=== PATIENT | male | born 1945 | race Two or more races ===

== ENCOUNTER → 2021-11-11 | Outpatient (CLI) | payer OTHER ==
[~2021-11-11] VITALS: Ht 177.8 cm; Wt 64.9 kg
[~2021-11-11] MED LIST: ADENOSINE 54 MG in GIVE UN-DILUTED 0 ML IV STA; REGADENOSON 0.4 MG/5 ML SYRG IV ONE
[2021-11-11 09:25] VITALS: BP 176/69
== END | disposition home or self-care (01) ==
LOC: XYW 07:14
PROVIDERS: ATTEND Internal Medicine
DX: Z01.818 Encounter for other preprocedural examination (principal); S73.001A Unspecified subluxation of right hip, initial encounter; E78.5 Hyperlipidemia, unspecified; E11.22 Type 2 diabetes mellitus with diabetic chronic kidney disease; N18.4 Chronic kidney disease, stage 4 (severe); M25.559 Pain in unspecified hip; X58.XXXA Exposure to other specified factors, initial encounter; Y93.89 Activity, other specified; Y92.89 Other specified places as the place of occurrence of the external cause; Y99.8 Other external cause status
CPT/HCPCS: 78452; 93017; A9500; J2785; J0153

== ENCOUNTER 2023-06-03 17:16 | Inpatient (IN) | payer OTHER ==
[~2023-06-03] VITALS: Ht 177.8 cm; Wt 76.5 kg
[2023-06-03 21:13] VITALS: PULSE 90; RESP 18; O2SAT 99
[2023-06-03] MEDS ORDERED: ONDANSETRON HCL 4 MG/2 ML VIAL IV PRN (22:00)
[2023-06-03] MEDS ORDERED: ACETAMINOPHEN 325 MG TAB PO PRN (22:00)
[2023-06-03] MEDS: InsuLIN REG 1unit/0.01ml Soln (100units/ml) SC SCH (22:00)
[2023-06-03] MEDS ORDERED: DEXTROSE (50%) 50ML SYRG IV PRN (22:00)
[2023-06-03] MEDS ORDERED: hydrALAZINE HCL 10 MG TAB PO PRN (22:00)
[2023-06-03 22:34] LABS: Basophils # (auto) 0.1 10 ^3/uL (0-0.2); Basophils % (auto) 1.6 % (0.0-2.0); Eosinophils # (auto) 0 10 ^3/uL (0-0.8); Hematocrit 36.9 % (41.0-53.0); Hemoglobin 12.2 g/dL (13.5-17.5); Lymphocytes # (auto) 0.1 10 ^3/uL (0.4-5.4); Lymphocytes % (auto) 1.6 % (10.0-50.0); Mean Corpuscular Hemoglobin 34.9 pg (28.0-32.0); Mean Corpuscular Volume 105.8 fL (80.0-100.0); Monocytes # (auto) 0.5 10 ^3/uL (0-1.3); Monocytes % (auto) 5.3 % (0.0-12.0); Neutrophils % (auto) 91.5 % (37.0-80.0); Nucleated Red Blood Cells % 0.2 %; Red Blood Cells 3.49 10^6/uL (4.5-5.90); Red Cell Distribution Width 15.9 % (11.8-14.3); White Blood Cell 8.7 10^3/uL (4.4-10.8)
[2023-06-03] MEDS: HEPARIN SODIUM (PORCINE) 5000 UNITS/ML 1ML VIAL SC SCH (22:51)
[2023-06-03 22:52] LABS: INR 1.49 (0.9-1.15); Prothrombin Time 15.2 sec (9.3-11.8)
[2023-06-03] MEDS: HYDROcodone-ACET 5/325MG TAB PO PRN (23:04)
[2023-06-03] MEDS: ACCU-CHEK COMFORT CURVE STRIP VI SCH (23:08)
[2023-06-04] VITALS (7 sets, daily range): BP systolic 138–165; BP diastolic 57–87; PULSE 78–90; RESP 18–20; TEMP 97.1–98.1; O2SAT 92–100
[2023-06-04] MEDS ORDERED: ALPR0.5T8 GT (03:36)
[2023-06-04] MEDS ORDERED: LOVA20TA4 PO (03:45)
[2023-06-04] MEDS ORDERED: SEVE800T10 PO (03:45)
[2023-06-04] MEDS ORDERED: METO25TA5 PO (03:45)
[2023-06-04] MEDS: ACCU-CHEK COMFORT CURVE STRIP VI SCH ×4 (06:33→22:00)
[2023-06-04] MEDS: InsuLIN REG 1unit/0.01ml Soln (100units/ml) SC SCH ×4 (06:38→22:00)
[2023-06-04 07:35] LABS: Calcium 8.6 mg/dL (8.5-10.1); Chloride 95 mmol/L (98-107); Potassium 5.4 mmol/L (3.5-5.1); Sodium 133 mmol/L (136-145)
[2023-06-04 07:36] LABS: Anion Gap 12 (5-15); Carbon Dioxide 26 mmol/L (20-30)
[2023-06-04 07:41] LABS: BUN/Creatinine Ratio 9.8 (10.0-20.0); Glucose 128 mg/dL (74-106)
[2023-06-04 07:45] LABS: Blood Urea Nitrogen 82 mg/dL (9-23)
[2023-06-04] MEDS: HYDROcodone-ACET 5/325MG TAB PO PRN ×3 (08:59→22:25)
[2023-06-04] MEDS: HEPARIN SODIUM (PORCINE) 5000 UNITS/ML 1ML VIAL SC SCH ×2 (09:10→22:28)
[2023-06-04] MEDS ORDERED: SODIUM ZIRCONIUM CYCL 10 GM PAK PO ONE (17:00)
[2023-06-04] MEDS: BUMETANIDE 2.5mg/10ml (0.25 mg/ml) INJ IV SCH (18:19)
[2023-06-05] VITALS (7 sets, daily range): BP systolic 130–158; BP diastolic 51–67; PULSE 80–109; RESP 17–21; TEMP 97.7–98.8; O2SAT 90–99
[2023-06-05] MEDS: HYDROcodone-ACET 5/325MG TAB PO PRN ×2 (04:03→17:51)
[2023-06-05 05:40] LABS: Calcium 8.8 mg/dL (8.5-10.1); Chloride 95 mmol/L (98-107); Sodium 134 mmol/L (136-145)
[2023-06-05 05:41] LABS: Anion Gap 14 (5-15); Carbon Dioxide 25 mmol/L (20-30)
[2023-06-05 05:46] LABS: BUN/Creatinine Ratio 10.4 (10.0-20.0); Glucose 80 mg/dL (74-106)
[2023-06-05] MEDS: BUMETANIDE 2.5mg/10ml (0.25 mg/ml) INJ IV SCH ×2 (06:00→17:50)
[2023-06-05 06:29] LABS: Blood Urea Nitrogen 92 mg/dL (9-23); Potassium 5.6 mmol/L (3.5-5.1)
[2023-06-05] MEDS: InsuLIN REG 1unit/0.01ml Soln (100units/ml) SC SCH ×4 (06:51→22:18)
[2023-06-05] MEDS: ACCU-CHEK COMFORT CURVE STRIP VI SCH ×4 (06:51→22:18)
[2023-06-05] MEDS ORDERED: SODIUM CHL 0.9% 1000 ML BAG XX ONE (07:00)
[2023-06-05] MEDS: HEPARIN SODIUM (PORCINE) 5000 UNITS/ML 1ML VIAL SC SCH ×2 (10:00→22:18)
[2023-06-05 10:36] LABS: Hepatitis B Surface Antibody Negative (Negative)
[2023-06-05 10:48] LABS: Hepatitis B Surface Antigen Negative (Negative)
[2023-06-05 11:20] LABS: COVID19 ANTIGEN SOFIA FIA NEGATIVE (NEGATIVE)
[2023-06-06] MEDS: HYDROcodone-ACET 5/325MG TAB PO PRN ×2 (00:44→09:51)
[2023-06-06 04:50] VITALS: BP 140/55; PULSE 85; RESP 17; TEMP 98.5; O2SAT 94
[2023-06-06] MEDS: ACCU-CHEK COMFORT CURVE STRIP VI SCH ×2 (06:56→10:40)
[2023-06-06] MEDS: BUMETANIDE 2.5mg/10ml (0.25 mg/ml) INJ IV SCH (06:56)
[2023-06-06] MEDS: InsuLIN REG 1unit/0.01ml Soln (100units/ml) SC SCH ×2 (06:57→10:40)
[2023-06-06 08:00] VITALS: PULSE 82; PULSE 83; RESP 18; O2SAT 98
[2023-06-06 08:34] VITALS: BP 121/54; PULSE 83; RESP 18; TEMP 98.3; O2SAT 98
[2023-06-06] MEDS: HEPARIN SODIUM (PORCINE) 5000 UNITS/ML 1ML VIAL SC SCH (08:45)
[2023-06-06 12:31] VITALS: BP 135/67; PULSE 90; RESP 19; TEMP 98.1; O2SAT 99
[2023-06-06 16:54] VITALS: BP 149/65; PULSE 91; RESP 17; TEMP 98.3; O2SAT 98
== END 2023-06-06 17:58 | DRG 640 ==
LOC: TELE-WESTW 19:46 → UNDOADMIN 19:46 → TELE-WESTW 22:02
PROVIDERS: ADMIT Nurse Practitioner Family; ATTEND Nurse Practitioner Family
PROC: 5A1D70Z Performance of Urinary Filtration, Intermittent, Less than 6 Hours Per Day (ICD-10-PCS; principal; 2023-06-05)
DX: E87.5 Hyperkalemia (principal); N18.6 End stage renal disease; I12.0 Hypertensive chronic kidney disease with stage 5 chronic kidney disease or end stage renal disease; E87.70 Fluid overload, unspecified; E11.22 Type 2 diabetes mellitus with diabetic chronic kidney disease; E78.5 Hyperlipidemia, unspecified; Z20.822 Contact with and (suspected) exposure to COVID-19; Z99.2 Dependence on renal dialysis; Z91.158 Patient's noncompliance with renal dialysis for other reason; Z86.73 Personal history of transient ischemic attack (TIA), and cerebral infarction without residual deficits; Z88.1 Allergy status to other antibiotic agents
CPT/HCPCS: 36415; 73502; 80048; 82306; 82962; 83036; 83880; 83970; 84100; 85025; 85610; 86706; 87081; 87340; 87426; 90935; 97110; 97116; 97163; 97530; G0378; J1815

== ENCOUNTER 2023-07-02 13:54 | Inpatient (IN) | payer OTHER ==
[~2023-07-02] VITALS: Ht 172.7 cm; Wt 76.8 kg
[~2023-07-02 13:54] MED LIST changes: -ADENOSINE 54 MG in GIVE UN-DILUTED 0 ML IV STA; +ALPR0.5T8 GT; +LOVA20TA4 PO; +METO25TA5 PO; -REGADENOSON 0.4 MG/5 ML SYRG IV ONE; +SEVE800T10 PO
[2023-07-02] MEDS ORDERED: ONDANSETRON ODT 4 MG TAB PO ONE (15:30)
[2023-07-02] MEDS ORDERED: MORPHINE SULFATE INJ 2 MG/ml SYRG IM ONE (15:30)
[2023-07-02] MEDS ORDERED: LORazepam 2MG/ML-1ML VIAL IV ONE (15:45)
[2023-07-02 16:14] LABS: Basophils # (auto) 0.1 10 ^3/uL (0-0.2); Eosinophils # (auto) 0.3 10 ^3/uL (0-0.8); Hemoglobin 8.4 g/dL (13.5-17.5); Lymphocytes # (auto) 0.3 10 ^3/uL (0.4-5.4); Nucleated Red Blood Cells % 0.2 %
[2023-07-02 16:16] LABS: Eosinophils % (auto) 2.5 % (0.0-7.0); Hematocrit 25.6 % (41.0-53.0); Lymphocytes % (auto) 2.7 % (10.0-50.0); Mean Corpuscular Hemoglobin 35.9 pg (28.0-32.0); Mean Corpuscular Hgb Conc. 32.7 g/dL (32.0-36.0); Monocytes # (auto) 0.5 10 ^3/uL (0-1.3); Neutrophils # (auto) 9.7 10 ^3/uL (1.6-8.6); Neutrophils % (auto) 88.8 % (37.0-80.0); Red Blood Cells 2.33 10^6/uL (4.5-5.90); Red Cell Distribution Width 17.6 % (11.8-14.3); White Blood Cell 10.9 10^3/uL (4.4-10.8)
[2023-07-02 16:31] LABS: Alanine Aminotransferase 14 U/L (7-40); Albumin 3.2 g/dL (3.2-4.8); Alkaline Phosphatase 136 U/L (46-116); Anion Gap 8 (5-15); Aspartate Aminotransferase 17 U/L (13-40); BUN/Creatinine Ratio 9.7 (10.0-20.0); Blood Alcohol < 3.0 mg/dL (<10); Blood Urea Nitrogen 48 mg/dL (9-23); Calcium 8.2 mg/dL (8.7-10.4); Carbon Dioxide 30 mmol/L (20-30); Chloride 101 mmol/L (98-107); Glucose 146 mg/dL (74-106); Magnesium 2.1 mg/dL (1.6-2.6); Sodium 139 mmol/L (136-145)
[2023-07-02 16:32] LABS: Bilirubin, Total 0.7 mg/dL (0.2-1.0); Total Protein 5.7 g/dL (5.7-8.2)
[2023-07-02 16:33] LABS: INR 1.55 (0.9-1.15); Partial Thromboplastin Time 31.7 SEC (24.5-34.5); Prothrombin Time 15.8 sec (9.3-11.8)
[2023-07-02 16:34] LABS: Potassium 5.8 mmol/L (3.5-5.1)
[2023-07-02 17:14] LABS: Anisocytosis Slight; Macrocytosis Moderate; Polychromasia Slight
[2023-07-02 17:15] LABS: Large Platelets FEW; Ovalocytes FEW; Platelet Estimate Adequa
[2023-07-02 19:25] VITALS: O2SAT 98
[2023-07-02] MEDS ORDERED: ALBUTEROL SULF 2.5 MG/0.5ML(0.5%) NEB SOLN NEB ONE (20:30)
[2023-07-02] MEDS ORDERED: DEXTROSE (50%) 50ML SYRG IV ONE (20:30)
[2023-07-02] MEDS ORDERED: SODIUM ZIRCONIUM CYCL 10 GM PAK PO ONE (20:30)
[2023-07-02] MEDS ORDERED: InsuLIN REG 1unit/0.01ml Soln (100units/ml) IV ONE (20:30)
[2023-07-02] MEDS ORDERED: SODIUM BICARBONATE 8.4% INJ 50ML SYRINGE IV ONE (20:45)
[2023-07-02 23:03] LABS: Glucose 146 mg/dL (74-106)
[2023-07-02 23:04] LABS: BUN/Creatinine Ratio 9.7 (10.0-20.0); Blood Urea Nitrogen 50 mg/dL (9-23)
[2023-07-02 23:13] LABS: Anion Gap 9 (5-15); Calcium 8.2 mg/dL (8.7-10.4); Carbon Dioxide 30 mmol/L (20-30); Chloride 101 mmol/L (98-107); Potassium 5.4 mmol/L (3.5-5.1); Sodium 140 mmol/L (136-145)
[2023-07-02 23:52] LABS: Amphetamine Screen, Urine Neg (NEGATIVE); Benzodiazephine Screen, Urine Pos (NEGATIVE)
[2023-07-02 23:53] LABS: Barbiturate Scree,Urine Neg (NEGATIVE); Cannabinoid Screen, Urine Neg (NEGATIVE); Cocaine Screen, Urine Neg (NEGATIVE); Opiate Scree,Urine Neg (NEGATIVE); Phencyclidine Screen, Urine Neg (NEGATIVE)
[2023-07-03 00:05] LABS: Urine Bacteria FEW /hpf (None Seen); Urine Blood 3+ /uL (Negative); Urine Clarity HAZY (Clear); Urine Color Yellow (Yellow); Urine Protein, UAD 2+ (Negative); Urine Specific Gravity 1.018 (1.001-1.035); Urine Urobilinogen Normal (Negative); Urine WBC 9 /hpf (0 - 3)
[2023-07-03] MEDS ORDERED: FUROSEMIDE 40 MG/4 ML VIAL IV ONE (00:15)
[2023-07-03] MEDS ORDERED: DEXTROSE (50%) 50ML SYRG IV ONE ×3 (00:15→08:45)
[2023-07-03] MEDS ORDERED: InsuLIN REG 1unit/0.01ml Soln (100units/ml) IV ONE ×3 (00:15→08:45)
[2023-07-03] MEDS ORDERED: ALBUTEROL SULF 2.5 MG/0.5ML(0.5%) NEB SOLN NEB ONE ×4 (00:15→08:45)
[2023-07-03] MEDS ORDERED: SODIUM BICARBONATE 8.4% INJ 50ML SYRINGE IV ONE ×3 (00:15→08:45)
[2023-07-03] MEDS ORDERED: ALBUTEROL MEDNEB 2.5 mg/3ml NEB ONE ×2 (00:37→05:43)
[2023-07-03] MEDS ORDERED: ONDANSETRON HCL 4 MG/2 ML VIAL IV PRN (01:30)
[2023-07-03] MEDS ORDERED: ENOXAPARIN SOD 80 MG/0.8ML SYRINGE SC SCH (01:30)
[2023-07-03] MEDS ORDERED: MORPHINE SULFATE INJ 2 MG/ml SYRG IV PRN (01:30)
[2023-07-03] MEDS ORDERED: hydrALAZINE HCL 10 MG TAB PO PRN (01:30)
[2023-07-03] MEDS ORDERED: NITROGLYCERIN 0.4 MG SL TAB SL PRN (01:30)
[2023-07-03] MEDS ORDERED: DEXTROSE (50%) 50ML SYRG IV PRN (01:30)
[2023-07-03] MEDS: cefTRIAXone 1GM/50ML D5W 50 ML IV SCH ×2 (02:13→10:00)
[2023-07-03] MEDS ORDERED: HEPARIN SODIUM (PORCINE) 5000 UNITS/ML 1ML VIAL IV SCH (02:30)
[2023-07-03] MEDS ORDERED: SODIUM ZIRCONIUM CYCL 10 GM PAK PO ONE ×2 (05:15→08:45)
[2023-07-03] MEDS ORDERED: CALCIUM GLUC 1,000mg/50ml-NS 50 ML IV ONE ×2 (05:15→08:45)
[2023-07-03] MEDS: METOPROLOL TARTRATE 25 MG TAB PO SCH ×2 (05:49→10:00)
[2023-07-03] MEDS: InsuLIN REG 1unit/0.01ml Soln (100units/ml) SC SCH ×4 (06:29→22:31)
[2023-07-03] MEDS: ACCU-CHEK COMFORT CURVE STRIP VI SCH ×4 (06:29→22:29)
[2023-07-03 06:42] LABS: Chloride 106 mmol/L (98-107); Sodium 142 mmol/L (136-145)
[2023-07-03 06:43] LABS: Anion Gap 16 (5-15); Calcium 8.3 mg/dL (8.5-10.1); Carbon Dioxide 20 mmol/L (20-30)
[2023-07-03 06:48] LABS: Glucose 142 mg/dL (74-106)
[2023-07-03 07:31] LABS: Blood Urea Nitrogen 37 mg/dL (9-23); Potassium 6.1 mmol/L (3.5-5.1)
[2023-07-03] MEDS ORDERED: FUROSEMIDE 20 MG/2 ML VIAL IV ONE (08:45)
[2023-07-03] MEDS ORDERED: SODIUM CHL 0.9% 1000 ML BAG XX ONE (09:30)
[2023-07-03] MEDS ORDERED: ENOXAPARIN SOD 100 MG/1 ML SYRINGE SC SCH (10:00)
[2023-07-03 11:31] LABS: % Iron Saturation 14.3 % (20-55)
[2023-07-03 11:44] LABS: Hepatitis B Surface Antigen Negative (Negative)
[2023-07-03 12:05] LABS: Hepatitis A Ab IgM Negative; Hepatitis B Core IgM Negative
[2023-07-03 12:06] LABS: Hepatitis C Antibody Negative (Negative)
[2023-07-03] MEDS ORDERED: ALBUMIN 25% 100 ML IV ONE (13:00)
[2023-07-03] MEDS: ACETAMINOPHEN 325 MG TAB PO PRN (13:29)
[2023-07-03 13:40] VITALS: O2SAT 96
[2023-07-03] MEDS ORDERED: METOCLOPRAMIDE HCL 10 MG TAB PO ONE (14:00)
[2023-07-03] MEDS ORDERED: HYDROcodone-ACET 10/325MG TAB PO ONE (14:00)
[2023-07-03] MEDS: SODIUM ZIRCONIUM CYCL 10 GM PAK PO SCH ×2 (15:42→21:38)
[2023-07-03 19:20] VITALS: PULSE 103; RESP 14; O2SAT 100
[2023-07-03] MEDS ORDERED: EPOETIN ALFA-EPBX 10,000 UNIT/1ML VIAL SC ONE (21:00)
[2023-07-03] MEDS: HYDROcodone-ACET 5/325MG TAB PO PRN (21:52)
[2023-07-04 06:22] LABS: Calcium 8.5 mg/dL (8.5-10.1); Chloride 99 mmol/L (98-107); Potassium 4.5 mmol/L (3.5-5.1); Sodium 142 mmol/L (136-145)
[2023-07-04 06:23] LABS: Anion Gap 10 (5-15)
[2023-07-04 06:28] LABS: Glucose 100 mg/dL (74-106)
[2023-07-04 06:29] LABS: BUN/Creatinine Ratio 8.9 (10.0-20.0); Blood Urea Nitrogen 39 mg/dL (9-23)
[2023-07-04 06:34] LABS: Carbon Dioxide 33 mmol/L (20-30)
[2023-07-04] MEDS: SODIUM ZIRCONIUM CYCL 10 GM PAK PO SCH ×3 (06:34→20:42)
[2023-07-04] MEDS: ACCU-CHEK COMFORT CURVE STRIP VI SCH ×4 (06:40→20:43)
[2023-07-04] MEDS: InsuLIN REG 1unit/0.01ml Soln (100units/ml) SC SCH ×4 (06:40→21:02)
[2023-07-04 08:00] VITALS: PULSE 89; RESP 12; O2SAT 100
[2023-07-04 09:58] VITALS: BP 106/79; PULSE 63; RESP 16; TEMP 98.1; O2SAT 100
[2023-07-04] MEDS: METOPROLOL TARTRATE 25 MG TAB PO SCH (10:52)
[2023-07-04] MEDS: HYDROcodone-ACET 5/325MG TAB PO PRN ×2 (10:53→20:42)
[2023-07-04] MEDS: cefTRIAXone 1GM/50ML D5W 50 ML IV SCH (11:20)
[2023-07-04 13:00] VITALS: BP 124/89; PULSE 134; RESP 18; TEMP 97.9; O2SAT 96
[2023-07-04 17:00] VITALS: BP 104/42; PULSE 86; RESP 19; TEMP 98.1; O2SAT 98
[2023-07-04] MEDS: MECLIZINE HCL 25 MG TAB PO SCH (20:42)
[2023-07-04 22:00] VITALS: BP_SYST 110; BP_SYST 135; BP_DIAS 46; BP_DIAS 53; PULSE 86; PULSE 89; RESP 16; TEMP 98.3; TEMP 98.5; O2SAT 100; O2SAT 98
[2023-07-05] VITALS (9 sets, daily range): BP systolic 97–139; BP diastolic 42–60; PULSE 84–117; RESP 17–19; TEMP 97.3–98.4; O2SAT 96–99
[2023-07-05] MEDS: HYDROcodone-ACET 5/325MG TAB PO PRN ×3 (02:32→15:48)
[2023-07-05] MEDS: MECLIZINE HCL 25 MG TAB PO SCH ×3 (06:00→21:33)
[2023-07-05] MEDS: SODIUM ZIRCONIUM CYCL 10 GM PAK PO SCH (06:07)
[2023-07-05] MEDS: ACCU-CHEK COMFORT CURVE STRIP VI SCH ×4 (06:34→21:33)
[2023-07-05] MEDS: InsuLIN REG 1unit/0.01ml Soln (100units/ml) SC SCH ×4 (06:45→21:33)
[2023-07-05] MEDS ORDERED: SODIUM CHL 0.9% 1000 ML BAG XX ONE (07:30)
[2023-07-05] MEDS: cefTRIAXone 1GM/50ML D5W 50 ML IV SCH (08:44)
[2023-07-05] MEDS: METOPROLOL TARTRATE 25 MG TAB PO SCH (08:44)
[2023-07-05 08:47] LABS: Anion Gap 11 (5-15); Carbon Dioxide 32 mmol/L (20-30); Chloride 97 mmol/L (98-107); Sodium 140 mmol/L (136-145)
[2023-07-05 08:48] LABS: Calcium 8.8 mg/dL (8.5-10.1)
[2023-07-05 08:53] LABS: BUN/Creatinine Ratio 9.7 (10.0-20.0); Glucose 108 mg/dL (74-106)
[2023-07-05 09:14] LABS: Blood Urea Nitrogen 50 mg/dL (9-23)
[2023-07-06] MEDS: HYDROcodone-ACET 5/325MG TAB PO PRN ×2 (01:49→09:29)
[2023-07-06 04:55] VITALS: BP 123/54; PULSE 95; RESP 16; TEMP 97.9; O2SAT 98
[2023-07-06] MEDS: MECLIZINE HCL 25 MG TAB PO SCH ×2 (05:06→17:25)
[2023-07-06] MEDS: InsuLIN REG 1unit/0.01ml Soln (100units/ml) SC SCH ×3 (06:49→17:00)
[2023-07-06] MEDS: ACCU-CHEK COMFORT CURVE STRIP VI SCH ×3 (06:50→17:28)
[2023-07-06] MEDS ORDERED: SODIUM CHL 0.9% 1000 ML BAG XX ONE (07:00)
[2023-07-06 07:34] LABS: Hemoglobin 9.2 g/dL (13.5-17.5)
[2023-07-06 07:37] LABS: Hematocrit 28.5 % (41.0-53.0)
[2023-07-06 07:57] LABS: % Iron Saturation 36.6 % (20-55)
[2023-07-06 08:00] VITALS: PULSE 120; RESP 18; O2SAT 98
[2023-07-06 09:27] VITALS: BP 114/45; PULSE 110; RESP 18; TEMP 97.8; O2SAT 96
[2023-07-06] MEDS: METOPROLOL TARTRATE 25 MG TAB PO SCH (10:00)
[2023-07-06] MEDS ORDERED: ALBUMIN 25% 100 ML IV ONE ×2 (10:30→11:15)
[2023-07-06] MEDS: cefTRIAXone 1GM/50ML D5W 50 ML IV SCH (10:39)
[2023-07-06] MEDS: ACETAMINOPHEN 325 MG TAB PO PRN (12:55)
[2023-07-06 20:00] VITALS: RESP 18; O2SAT 98
[2023-07-06] MEDS ORDERED: EPOETIN ALFA-EPBX 10,000 UNIT/1ML VIAL SC ONE (21:00)
[2023-07-07] MEDS ORDERED: SODIUM CHL 0.9% 1000 ML BAG XX ONE (07:00)
== END 2023-07-06 20:45 | disposition home health service (06) | DRG 70 ==
LOC: ER 13:54 → EDBD 13:54 → TELE 07-03 01:25 → TELE-EAST 07-04 10:43 → TELE-WESTW 07-04 22:20
PROVIDERS: ADMIT Nurse Practitioner Family; ATTEND Nurse Practitioner Family
PROC: 5A1D70Z Performance of Urinary Filtration, Intermittent, Less than 6 Hours Per Day (ICD-10-PCS; principal; 2023-07-03)
PROC: 5A1D70Z Performance of Urinary Filtration, Intermittent, Less than 6 Hours Per Day (ICD-10-PCS; 2023-07-06)
DX: G93.41 Metabolic encephalopathy (principal); L89.153 Pressure ulcer of sacral region, stage 3; N18.6 End stage renal disease; N39.0 Urinary tract infection, site not specified; I13.2 Hypertensive heart and chronic kidney disease with heart failure and with stage 5 chronic kidney disease, or end stage renal disease; I50.22 Chronic systolic (congestive) heart failure; I48.91 Unspecified atrial fibrillation; E87.5 Hyperkalemia; E11.22 Type 2 diabetes mellitus with diabetic chronic kidney disease; D63.1 Anemia in chronic kidney disease; F41.9 Anxiety disorder, unspecified
CPT/HCPCS: 36415; 70450; 71045; 80048; 80053; 80074; 80307; 80320; 81001; 82728; 82962; 83540; 83550; 83605; 83735; 83880; 84132; 84484; 85014; 85018; 85025; 85610; 85730; 87040; 87081; 90935; 93005; 93306; 94640; 96372; 96374; 96375; 96376; 97110; 97116; 97163; 97530; G0378; J0696; J1642; J1815; P9047; Q0162